=== PATIENT | female | born 1980 | race Hispanic/Latino ===

== ENCOUNTER 2023-02-10 08:52 | Day surgery (SDC) | payer OTHER ==
[~2023-02-10 08:52] MED LIST: ERYTHROMYCIN BAS1 GM OS; MULTI VIT PO; NITROFURANTN100 MG PO; OMEPRAZOLE10 MG PO
[2023-02-10] MEDS ORDERED: PERCOCET 5/321 COMBO PO (10:49)
[2023-02-10 12:31] VITALS: BP 99/65
[2023-02-11] MEDS ORDERED: AMOX/K CLAV875 M1 PO (14:16)
== END 2023-02-10 12:50 | disposition home or self-care (01) | DRG 419 ==
LOC: ORM 08:52
PROVIDERS: ATTEND Surgery
PROC: 0FT44ZZ Resection of Gallbladder, Percutaneous Endoscopic Approach (ICD-10-PCS; principal; 2023-02-10)
DX: K80.10 Calculus of gallbladder with chronic cholecystitis without obstruction (principal); K21.9 Gastro-esophageal reflux disease without esophagitis
CPT/HCPCS: J0131; J0690; J1100; J2710